=== PATIENT | female | born 1955 | race Caucasian/White ===

== ENCOUNTER 2019-10-30 05:43 | Day surgery (SDC) | payer MEDICAID, SELFPAY ==
[2019-10-30] VITALS (7 sets, daily range): BP systolic 135–162; BP diastolic 53–86; PULSE 55–76; RESP 16; TEMP 36.8–37.3; O2SAT 95–99; BMI 34.2
[2019-10-30] MEDS: Lactated Ringers 1,000 ML 100 ML IV (06:51)
--- NOTE | 2019-10-30 07:24 | PCM.HP.STD ---
Problem List (1) Left lower quadrant abdominal pain Status: Acute (2) Hydroureter Status: Acute History of Present Illness Date of Admission: 10/30/19 Chief Complaint: left lower abdominal pain The patient is a 64 year old Fwho had a left distal ureteral stone in the past that was lodged and took several weeks to resolve with intervention. Since then she has had left lower abdominal pain similar to her stone pain. On CT she has left hydroureter, no hydronephrosis. She presents today for retrograde pyelograms and ureterscopy with stent insertion. Past Medical History Allergies codeine Adverse Reaction (Verified 10/30/19 06:26) Vomiting lisinopril Adverse Reaction (Verified 10/30/19 06:26) PT UNSURE OF REACTION cough Sulfa (Sulfonamide Antibiotics) Adverse Reaction (Verified 10/30/19 06:26) Vomiting Home Medications: Ambulatory Orders Medication Instructions Recorded Fexofenadine HCl [Lynn Allergy] 60 mg PO DAILY 10/23/19 Losartan Potassium [Cozaar] 25 mg PO DAILY 10/23/19 Metoprolol Succinate 50 mg PO DAILY 10/23/19 Spironolactone [Aldactone] 25 mg PO DAILY 10/23/19 Cephalexin [Keflex] 500 mg PO Q8 10/30/19 Smoking Status: Former smoker Review of Systems Constitutional: Denies: Anorexia, Chills, Fever Eyes: Denies: Vision Change HEENT: Denies: Visual Changes Cardiovascular: Denies: Chest Pain, Chest Pressure Respiratory: Denies: Cough, Shortness of Breath Gastrointestinal: Reports: Abdominal Pain. Denies: Nausea, Vomiting Genitourinary: Reports: Urgency. Denies: Dysuria, Hematuria Gynecological: Denies: Vaginal itching Musculoskeletal: Denies: Muscle pain Skin: Denies: Wounds Neurological: Denies: Difficulty swallowing VTE Information - Inpt Only VTE Present on Admission: Yes VTE Mechan Device Prophylaxis: SCD's VTE Pharm Prophylaxis ordered?: No Reason prophylaxis not ordered:: Treatment Not Indicated Patient Problems: Active and Suspected Problems Left lower quadrant abdominal pain (Acute) Hydroureter (Acute) - Physical Exam Vitals/I&O's: Vital Signs Temp Pulse Resp BP Pulse Ox 98.8 F 55 L 16 152/81 H 98 10/30/19 06:27 10/30/19 06:27 10/30/19 06:27 10/30/19 06:27 10/30/19 06:27 Oxygen Delivery Method Room Air Weight: 90.6 kg Body Mass Index (BMI) 34.2 General: Alert, Oriented x3, Cooperative HEENT: Atraumatic, PERRLA, Normocephalic Oral: Moist Mucosa Neck: Supple, Trachea Midline Lungs: Normal air movement Cardiovascular: Regular rate, Regular Rhythm Abdomen: Soft, Non Tender, Non-Distended Extremities: No edema Skin: No rashes Musculoskeletal: No Muscle Wasting Neurological: Cranial nerves II-XII grossly intact, Neuro grossly intact Psych/Mental Status: Normal Affect Current Medications Cefazolin Sodium 2 gm/ Sodium (Chloride) 110 mls @ 150 mls/hr IV PREOP ONE Stop: 10/30/19 08:13 Lactated Ringer's () 1,000 mls @ 100 mls/hr IV .Q10H KATHY Last Admin: 10/30/19 06:51 Dose: 100 mls/hr Documented by: Assessment/Plan All Active Problems Left lower quadrant abdominal pain (Acute) Hydroureter (Acute) proceed with cystoscopy, left retrograde, left ureteroscopy and left ureteral stent insertion Procedure Criteria Procedure Type: Elective COVID Risk Discussion: The surgeon/proceduralist and patient have discussed in detail the risk of exposure to and/or potential harm posed by the COVID-19 virus with having a surgery/procedure at this time versus the risk of delaying the surgery/procedure. It is not possible to know either the risk of delaying the surgery or procedure or chance of getting an infection with perfect accuracy, but a joint decision was made between the patient and the surgeon/proceduralist to proceed at this time with the scheduled surgery/procedure as indicated on the consent form.
[2019-10-30] MEDS: Cefazolin 2 GM in 0.9% Normal Saline 100 ML IV (07:26)
--- NOTE | 2019-10-30 08:18 | OP.PCM_ITS ---
Problem List (1) Left lower quadrant abdominal pain Status: Acute (2) Hydroureter Status: Acute Report of Operation Date of Procedure: 10/30/19 Pre-Operative Diagnosis: Left lower abdominal pain, hydroureter Post-Operative Diagnosis: Left lower abdominal pain, no hydroureter Surgery/Procedure Performed:: Cystoscopy, left retrograde pyelogram, left ureteroscopy, left ureteral stent insertion Type of Anesthesia:: General Description of Procedure: The patient is a 64-year-old female who had a left distal ureteral calculus that was lodged in place requiring intervention approximately 2 years ago. Since that time she reports intermittent left lower abdominal discomfort in the same location as the pain when she had the stone. She was evaluated with a CT scan revealing that the left ureter was enlarged compared to the right ureter and was filled with urine questioning hydroureter. She now presents for more definitive evaluation. The risks benefits and alternatives were discussed including that of the current COVID-19 both the risk of obtaining the illness and secondly if she has the illness having increased complication rates. She understands and desires to proceed. The patient was taken to the operating room and placed on the operating room table. Anesthesia monitored the head, neck, airway, IV access and vital signs throughout the case. Once anesthesia was appropriate ministered the patient was placed into dorsal lithotomy position was prepped and draped in usual sterile fashion. A cystourethroscopy was performed through the urethra under direct visualization. There is no abnormality identified in the urethra or the bladder mucosa. The ureteral orifices were located in the correct anatomic position. At this time the left ureteral orifice was intubated with an 8 [place] cone-tip catheter and a retrograde pyelogram was performed under fluoroscopic visualization. There were no filling defects or abnormalities identified including no hydroureter. The calyces were sharp and not blunted. At this time a good jet was observed of contrast coming from the left ureter. Left ureter was then intubated with 2 separate 0.035 glide wires. 1 of these was used as a safety wire. The second 1 was used for insertion of the flexible ureteroscope. The ureteroscope easily entered the ureter all the way up to the renal pelvis without difficulty. The calyces were healthy without abnormality aside from a small calcification approximately 1 mm in size was beginning to form and still stuck to a papilla. At this time the length of the ureter in its entirety was directly visualized. There was no erythema, obstruction, scar tissue, narrowing, foreign body identified. The cystoscope was then used to insert a 6 [place] 24 cm double-J stent with good positioning in the renal pelvis as well as the urinary bladder. The patient's bladder was emptied and the case was terminated. She was awakened and taken to the recovery room in good condition. There were no complications during this procedure. Grafts/Implants Used: 6 x 24 JJ stent - Complications None - Admit VTE Documentation VTE Present on Admission: Yes VTE Mechan Device Prophylaxis: SCD's VTE Pharm Prophylaxis ordered?: No Reason prophylaxis not ordered:: Treatment Not Indicated
--- NOTE | 2019-10-30 08:26 | DCINST_ITS ---
Discharge Diet: No Restrictions Discharge Activity: May not drive while taking narcotic pain medications., May Shower May resume sexual activity in: 1 week Call your doctor if you observe: Fever of 101 or Higher, Inability to urinate, Inability to have a bowel movement Allergies/Adverse Reactions: Allergies codeine Adverse Reaction (Verified 10/30/19 06:26) Vomiting lisinopril Adverse Reaction (Verified 10/30/19 06:26) PT UNSURE OF REACTION cough Sulfa (Sulfonamide Antibiotics) Adverse Reaction (Verified 10/30/19 06:26) Vomiting Medications to take at Discharge Fexofenadine HCl [Lynn Allergy] 60 mg PO DAILY 10/23/19 Losartan Potassium [Cozaar] 25 mg PO DAILY 10/23/19 Metoprolol Succinate 50 mg PO DAILY 10/23/19 Spironolactone [Aldactone] 25 mg PO DAILY 10/23/19 Cephalexin [Keflex] 500 mg PO Q8 10/30/19 Oxycodone HCl/Acetaminophen [Percocet 5/325] 2 tablet PO Q8H PRN PRN 7 Days #20 tablet 10/30/19 Phenazopyridine HCl [Pyridium] 200 mg PO TID PRN PRN 7 Days #30 tab 10/30/19 The following prescriptions were given: Oxycodone HCl/Acetaminophen [Percocet 5/325] 2 tablet PO Q8H PRN PRN 7 Days #20 tablet PRN Reason: Pain Transmission Status: Sent to [facility] Phenazopyridine HCl [Pyridium] 200 mg PO TID PRN PRN 7 Days #30 tab PRN Reason: Bladder Spasms Transmission Status: Pending to [facility] Primary Care Physician: Lorenza Bravo MD [Primary Care Provider] - Test Results: Test results from this visit will be discussed in further detail at your follow- up appointment, if applicable. Please Follow Up With: Marilu Ahumada MD When: call office for appt to be seen in 2 weeks
[2019-10-30] MEDS: oxyCODONE 5 MG Tablet PO (09:53)
[2019-10-30] MEDS: Acetaminophen 325 MG Tablet PO (09:53)
== END 2019-10-30 10:55 | disposition home or self-care (01) ==
LOC: SDC 05:47 → AC 05:48
PROVIDERS: Anesthesiology; PCP Internal Medicine; Referring Provider Urology; Visit Provider Urology
PROC: 0TJ98ZZ Inspection of Ureter, Via Natural or Artificial Opening Endoscopic (ICD-10-PCS; CPT 52352; principal; 2019-10-30 07:20)
DX: R10.32 Left lower quadrant pain (principal); Z87.442 Personal history of urinary calculi; I34.1 Nonrheumatic mitral (valve) prolapse; I10 Essential (primary) hypertension; Z20.828 Contact with and (suspected) exposure to other viral communicable diseases; Z87.891 Personal history of nicotine dependence
CPT/HCPCS: 00910; 52332; 76000; 87635; G2023; J7120; C1769; C2617; J2405; U0003